=== PATIENT | female | born 1970 | race Caucasian/White ===

== ENCOUNTER 2017-03-23 14:28 | Emergency (ER) | payer OTHER ==
[~2017-03-23] VITALS: Ht 162.6 cm; Wt 59.0 kg
[2017-03-23] MEDS ORDERED: PROMETHAZINE 12.5 MG in IV NORMAL SALINE 50ML 50 ML IV PRN (15:00)
--- NOTE | 2017-03-23 15:00 | PHYS DOC ---
Past Medical History Past Medical History: No Pertinent History Past Surgical History: No Surgical History Alcohol Use: Rarely Drug Use: None Adult General Chief Complaint Chief Complaint: HEADACHE HPI HPI Patient is a 46 year old presents to the emergency department to 4 week history of a global headache. She states it's gotten progressively worse over last 3-4 days. She states that this is not like any headache she has experienced in the past and she's never had a chronic headache lasting more than 1-2 days.She does state that she has dizziness, on occasion, with standing. She denies blurred vision, double vision, loss of vision, nausea, vomiting, diarrhea. No chest pain, abdominal pain. No loss of function of lower upper extremity's. She reports she has been using [id number] ibuprofen and Tylenol with minimal relief symptoms. Review of Systems Review of Systems Constitutional: Denies fever or chills [] Eyes: Denies change in visual acuity, redness, or eye pain [] HENT: Denies nasal congestion or sore throat [] Respiratory: Denies cough or shortness of breath [] Cardiovascular: No additional information not addressed in HPI [] GI: Denies abdominal pain, nausea, vomiting, bloody stools or diarrhea [] Neurologic: Denies headache, focal weakness or sensory changes [] Current Medications Current Medications Current Medications Medications (Trade) Dose Ordered Sig/Jose G Start Time Stop Time Status Last Admin Dose Admin Diphenhydramine HCl (Benadryl) 25 mg 1X ONCE 03/23/17 15:30 03/23/17 15:31 DC 03/23/17 15:32 25 MG Ketorolac Tromethamine (Toradol) 30 mg 1X ONCE 03/23/17 15:30 03/23/17 15:31 DC 03/23/17 15:32 30 MG Promethazine HCl 12.5 mg/Sodium Chloride 50.5 ml @ 151.5 mls/ hr 1X ONCE 03/23/17 15:30 03/23/17 15:49 DC 03/23/17 15:32 151.5 MLS/HR Sodium Chloride 1,000 ml @ 1,000 mls/hr 1X ONCE 03/23/17 15:30 03/23/17 16:29 03/23/17 15:32 1,000 MLS/HR Allergies Allergies Allergies Coded Allergies Type Severity Reaction Last Updated Verified No Known Drug Allergies 03/23/17 No Physical Exam Physical Exam Constitutional: Well developed, well nourished, no acute distress, non-toxic appearance. [] HENT: Normocephalic, atraumatic, bilateral external ears normal, oropharynx moist, no oral exudates, nose normal. [] Eyes: PERRLA, EOMI, conjunctiva normal, no discharge. [] Neck: Normal range of motion, no tenderness, supple, no meningeal signs Cardiovascular:Heart rate regular rhythm, no murmur, no lower extremity edema [] Lungs & Thorax: Bilateral breath sounds clear to auscultation [] Abdomen: Bowel sounds normal, soft, no tenderness, no masses, no pulsatile masses. [] Skin: Warm, dry, no erythema, no rash. [] Extremities: No tenderness, no cyanosis, no clubbing, ROM intact, no edema. [] Neurologic: Alert and oriented X 3, normal motor function, normal sensory function, no focal deficits noted, cranial 2 through 12 are grossly intact, muscle strength is 5 over 5, DTRs 4 extremities [] Psychologic: Affect normal, judgement normal, mood normal. [] Current Patient Data Vital Signs Vital Signs Date Time Temp Pulse Resp B/P (MAP) Pulse Ox O2 Delivery O2 Flow Rate FiO2 03/23/17 15:37 64 16 108/66 (80) 99 03/23/17 14:40 98.6 Room Air 98.6 EKG EKG [] Radiology/Procedures Radiology/Procedures [][facility] [address] [place] [address] IMAGING REPORT Signed PATIENT: DAMIR CARR ACCOUNT: [id number] : 1970 LOCATION: ER AGE: 46 SEX: F EXAM STATUS: REG ER ORD. PHYSICIAN: AHMET SIMPSON APRN REASON: SIEGEL PROCEDURE: CT HEAD WO CONTRAST Indication headache for several weeks. Noncontrast images of the head were obtained. No prior imaging of the head is available. The calvarium appears unremarkable. The visualized paranasal sinuses appear normal. There is no subdural or epidural hematoma. There is no mass or midline shift. The ventricles and sulci are normal. There is no hemorrhage. No acute finding is seen. IMPRESSION: No acute or significant intracranial finding PQRS Compliance Statement: One or more of the following individualized dose reduction techniques were utilized for this examination: 1. Automated exposure control 2. Adjustment of the mA and/or kV according to patient size 3. Use of iterative reconstruction technique DICTATED and SIGNED BY: NAMITA WAITE MD DATE: 03/23/17 5405 CC: NON,STAFF; AHMET HART MD; AHMET SIMPSON APRN ~ Course & Med Decision Making Course & Med Decision Making Pertinent Labs and Imaging studies reviewed. (See chart for detaiils) Patient reports that her headache has resolved. I spoke with the patient and/ or care givers. I've explained the patient's condition, diagnosis and treatment plan based on the information available to me at this time. I've answered the patient's and/or care givers questions and a dressing concerns. The patient and/ or care givers have as good an understanding of the patient's diagnosis, condition and treatment plan as can be expected at this time. Vital signs stable. The patient's condition is stable and appropriate for discharge from the emergency department. The patient will pursue further outpatient evaluation with the primary care physician or other designated or consulting physician as outlined in the discharge instructions. The patient and/or care givers are agreeable to this plan of care and follow-up instructions and explained in detail. The patient and /or care givers have received these instructions in written format and have expressed an understanding of the discharge instructions. The patient and/or caregivers are aware that any significant change in condition or worsening of symptoms should prompt immediate return to this closest emergency department or call to 911. [] Dragon Disclaimer Dragon Disclaimer This electronic medical record was generated, in whole or in part, using a voice recognition dictation system. Departure Departure Impression: Primary Impression: Cephalgia Disposition: 01 HOME, SELF-CARE Condition: STABLE Referrals: AHMET HART MD (PCP) Patient Instructions: Tension Headache Scripts Cyclobenzaprine Hcl (CYCLOBENZAPRINE HCL) 10 Mg Tablet 1 TAB PO TID, #20 TAB Prov: AHMET SIMPSON APRN 03/23/17 Naproxen (NAPROSYN) 500 Mg Tablet 1 TAB PO BID, #20 TAB 1 Refill Prov: AHMET SIMPSON APRN 03/23/17 AHMET SIMPSON APRN Mar 23, 2017 15:00
[2017-03-23] MEDS ORDERED: diphenhydrAMINE 50 MG/ML VIAL IVP ONE (15:30)
[2017-03-23] MEDS ORDERED: IV NORMAL SALINE 1000ML BAG 1,000 ML IV ONE (15:30)
[2017-03-23] MEDS ORDERED: KETOROLAC TROMETHAMINE 30 MG/ML INJ. IV ONE (15:30)
[2017-03-23] MEDS ORDERED: PROMETHAZINE 12.5 MG in IV NORMAL SALINE 50ML 50 ML IV ONE (15:30)
--- NOTE | 2017-03-23 16:20 | RAD ---
Indication headache for several weeks. Noncontrast images of the head were obtained. No prior imaging of the head is available. The calvarium appears unremarkable. The visualized paranasal sinuses appear normal. There is no subdural or epidural hematoma. There is no mass or midline shift. The ventricles and sulci are normal. There is no hemorrhage. No acute finding is seen. IMPRESSION: No acute or significant intracranial finding PQRS Compliance Statement: One or more of the following individualized dose reduction techniques were utilized for this examination: 1. Automated exposure control 2. Adjustment of the mA and/or kV according to patient size 3. Use of iterative reconstruction technique
[2017-03-23] MEDS ORDERED: CYCL10TA2 PO (16:32)
[2017-03-23] MEDS ORDERED: NAPR500T PO (16:32)
[2017-03-23 16:40] VITALS: BP 105/77
== END 2017-03-23 16:51 | disposition home or self-care (01) ==
LOC: ER 14:28
DX: R51 Headache (principal); R42 Dizziness and giddiness
CPT/HCPCS: 70450; 96365; 96375; 99284; J1200; J1885; J2550; J7030; C1887

== ENCOUNTER → 2019-02-18 | Outpatient (CLI) | payer OTHER ==
[~2019-02-18] MED LIST: CYCL10TA2 PO; NAPR-683 PO
--- NOTE | 2019-02-18 16:57 | KCIC ---
EXAM: CHEST 2 VIEWS. HISTORY: Smoking history, decreased pulmonary function. COMPARISON: None. FINDINGS: Frontal and lateral views of the chest are obtained. The lungs are expanded to the 10th posterior interspaces. The hemidiaphragms are not flattened. There are no confluent infiltrates. There is no pneumothorax or pleural effusion. The heart is not enlarged. IMPRESSION: 1. No confluent infiltrates. Electronically signed by: Jessica Sanders MD (02/18/2019 4:54 PM) [facility]
== END | disposition home or self-care (01) ==
LOC: KCIC 15:05
PROVIDERS: ATTEND Family Medicine
DX: Z72.0 Tobacco use (principal)
CPT/HCPCS: 71046

== ENCOUNTER 2021-08-15 10:53 | Emergency (ER) | payer OTHER ==
[~2021-08-15] VITALS: Ht 162.6 cm; Wt 63.6 kg
[~2021-08-15 10:53] MED LIST changes: +CYCL10TA19 PO; -CYCL10TA2 PO
[2021-08-15] MEDS ORDERED: IV NORMAL SALINE 1000ML BAG 1,000 ML IV ONE (12:15)
[2021-08-15] MEDS ORDERED: diphenhydrAMINE 50 MG/ML VIAL IVP ONE (12:15)
[2021-08-15] MEDS ORDERED: PROCHLORPERAZINE 10 MG/2 ML VIAL. IV ONE (12:15)
--- NOTE | 2021-08-15 13:05 | RAD ---
CT HEAD/BRAIN WO Date: 08/15/2021 12:56 PM Clinical Indication: Severe headache with thunderclap onset / Spl. Instructions: / History: Comparison: None. Technique: 5 mm axial tomographic images were obtained of the head without contrast. These were view ed on brain and bone windows. One or more of the following dose reduction techniques were utilized: A utomated exposure control (AEC), Adjustment of mA and/or kV according to patient size, Use of iterati ve reconstruction technique such as ASiR, CT scan done according to ALARA and image gently/image johnson ly Findings: The brain parenchyma is normal in attenuation. No intra- or extra-axial mass or fluid collection. No acute hemorrhage. The ventricles are normal in size, shape, and morphology. The hernandez-white matter jessica ction is normal. The subarachnoid cisterns are patent. Opacification of the left frontal sinus. The visualized portions of the orbits and globes are normal . The mastoid air cells are clear. The shell molder topogram shows no lytic lesion or fracture. Impression: 1. No acute intracranial process. 2. Left frontal sinus opacification. Electronically signed by: Darvin Soares MD (08/15/2021 1:03 PM) [facility]
--- NOTE | 2021-08-15 14:06 | PHYS DOC ---
Past Medical History Past Medical History: No Pertinent History (TORI GARCIA APRN) Past Surgical History: No Surgical History (TORI GARCIA APRN) Smoking Status: Never Smoker Alcohol Use: Rarely Drug Use: None (TORI GARCIA APRN) General Adult EDM: Chief Complaint: HEADACHE HPI: HPI: Patient is a 51-year-old female who presents to the emergency department complaining of a thunderclap onset of a migraine headache that started at 830 this morning while she was at work working on her computer. Patient does report a history of migraine headaches, reports getting 3-4 migraines per week that is usually relieved with her prescription medications for her migraines. She denies any other health history. Patient reports this is the worst migraine she has ever experienced. Patient reports the light does make her headache worse, reports her headache is a 10 out of 10 at this time on the left side of her head starting in the front and radiating to the back of the left side of her head. Patient denies nausea, vomiting, diarrhea, denies visual disturbances or auras. Denies dizziness, syncopal or near syncopal episodes. Denies numbness or t ingling to her extremities. Patient denies recent fever or chills. Denies changes in medications. Patient reports she is postmenopausal. Denies other physical complaints or physical concerns. (TORI GARCIA APRN) Review of Systems: Review of Systems: 14 body systems of review of systems have been reviewed. See HPI for pertinent positives and negative responses, otherwise all other systems are negative, nonpertinent or noncontributory. Constitutional: Negative except as outlined in HPI above. Skin: Negative except as outlined in HPI above. Eyes: Negative except as outlined in HPI above. HENT: Negative except as outlined in HPI above. Respiratory: Negative except as outlined in HPI above. Cardiovascular: Negative except as outlined in HPI above. GI: Negative except as outlined in HPI above. : Negative except as outlined in HPI above. Musculoskeletal: Negative except as outlined in HPI above. Integument: Negative except as outlined in HPI above. Neurologic: Negative except as outlined in HPI above. Endocrine: Negative except as outlined in HPI above. Lymphatic: Negative except as outlined in HPI above. Psychiatric: Negative except as outlined in HPI above. (TORI GARCIA APRN) Heart Score: C/O Chest Pain: No Risk Factors: Risk Factors: DM, Current or recent (<one month) smoker, HTN, HLP, family history of CAD, obesity. Risk Scores: Score 0 - 3: 2.5% MACE over next 6 weeks - Discharge Home Score 4 - 6: 20.3% MACE over next 6 weeks - Admit for Clinical Observation Score 7 - 10: 72.7% MACE over next 6 weeks - Early Invasive Strategies (TORI GARCIA APRN) Current Medications: Current Medications Medications (Trade) Dose Ordered Sig/Jose G Start Time Stop Time Status Last Admin Dose Admin Diphenhydramine HCl (Benadryl) 25 mg 1X ONCE 08/15/21 12:15 08/15/21 12:17 DC 08/15/21 12:33 25 MG Prochlorperazine Edisylate (Compazine) 10 mg 1X ONCE 08/15/21 12:15 08/15/21 12:17 DC 08/15/21 12:33 10 MG Sodium Chloride 1,000 ml @ 1,000 mls/hr 1X ONCE 08/15/21 12:15 08/15/21 13:14 DC 08/15/21 12:32 1,000 MLS/HR (TORI GARCIA APRN) Allergies: Allergies: Allergies Coded Allergies Type Severity Reaction Last Updated Verified No Known Drug Allergies 03/23/17 No (TORI GARCIA APRN) Physical Exam: PE: Constitutional: Well developed, well nourished, no acute distress, non-toxic appearance. 51-year-old female in no apparent distress. HENT: Normocephalic, atraumatic. Bilateral TMs intact within normal limits, oropharynx moist, pink, no deep tissue infectious process appreciated, bilateral nasal turbinates moist, patent, no drainage appreciated. No drooling, no malocclusion, no trismus, patient speaking in normal voice tones. Eyes: Conjunctiva normal, no discharge. PERRLA. Neck: Normal range of motion, no stridor. No nuchal rigidity, no meningismus signs. Cardiovascular: No cyanosis appreciated, distal cap refill less than 2 seconds. Lungs & Thorax: Patient is in no respiratory distress, no audible adventitious lung sounds appreciated. Abdomen: Nontender, no abnormalities noted. Skin: Warm, dry, no erythema, no rash. Back: No tenderness, no deformities. Extremities: No tenderness, no cyanosis, no clubbing, ROM intact, no edema. Neurologic: Alert and oriented X 3, normal motor function, normal sensory function, no focal deficits noted. Psychologic: Affect normal, judgement normal, mood normal. (TORI GARCIA APRN) Current Patient Data: Vital Signs: Vital Signs Date Time Temp Pulse Resp B/P (MAP) Pulse Ox O2 Delivery O2 Flow Rate FiO2 08/15/21 11:50 97.2 79 18 131/79 (96) 97 Room Air 97.2 (TORI GARCIA APRN) EKG: EKG: [] (TORI GARCIA APRN) Radiology/Procedures: Radiology/Procedures: REASON: Severe headache with thunderclap onset PROCEDURE: CT HEAD WO CONTRAST CT HEAD/BRAIN WO Date: 08/15/2021 12:56 PM Clinical Indication: Severe headache with thunderclap onset / Spl. Instructions: / History: Comparison: None. Technique: 5 mm axial tomographic images were obtained of the head without contrast. These were viewed on brain and bone windows. One or more of the following dose reduction techniques were utilized: Automated exposure control (AEC), Adjustment of mA and/or kV according to patient size, Use of iterative reconstruction technique such as ASiR, CT scan done according to ALARA and image gently/image wisely Findings: The brain parenchyma is normal in attenuation. No intra- or extra-axial mass or fluid collection. No acute hemorrhage. The ventricles are normal in size, shape, and morphology. The hernandez-white matter junction is normal. The subarachnoid cisterns are patent. Opacification of the left frontal sinus. The visualized portions of the orbits and globes are normal. The mastoid air cells are clear. The iron assorter topogram shows no lytic lesion or fracture. Impression: 1. No acute intracranial process. 2. Left frontal sinus opacification. Electronically signed by: Darvin Soares MD (08/15/2021 1:03 PM) [facility] (TORI GARCIA APRN) Course & Med Decision Making: Course & Med Decision Making Pertinent Labs and Imaging studies reviewed. (See chart for details) 51-year-old female, vital signs reviewed, presents to the emergency department concerning migraine headache exacerbation reporting thunderclap onset stating this is the worst migraine she has ever had. Physical examination unremarkable, patient does report photophobia, explanation of events consistent with migraine onset, will order CT head without contrast, 1 L normal saline, 25 mg Benadryl IV, 10 mg IV Compazine, will consider Toradol pending CT head result. CT head unremarkable for acute process, upon reevaluation of the patient, patient reports she is feeling much better, reporting her pain is down to a 2 out of 10 and is more tolerable and wishes to go home at this time. Discussed with patient will give 30 mg IV Toradol prior to discharge, strict follow-up with primary care at the [facility], continue to take migraine medications as prescribed by her physician. Patient gave verbal understanding of and is amenable to ED discharge planning. Diagnosis migraine headache not intractable. Discussed with the patient all findings and diagnostic testing as well as the need to follow-up with their primary care provider for further evaluation and treatment or return to the ED if any new or worsening symptoms. Strict return precautions were also discussed at length, the patient voiced understanding and agreement with the discharge planning. The patient was nontoxic in appearance, in no apparent distress, and hemodynamically stable at the time of disposition. (TORI GARCIA APRN) Course & Med Decision Making Agree with above. CT head <6 hours from onset of thunderclap headache effectively rules out SAH. (SIMRAN SILVEIRA MD) Dragon Disclaimer: Dragon Disclaimer: This electronic medical record was generated, in whole or in part, using a voice recognition dictation system. (TORI GARCIA APRN) Departure Departure Impression: Primary Impression: Migraine Qualified Codes: G43.009 - Migraine without aura, not intractable, without status migrainosus Disposition: HOME / SELF CARE / HOMELESS Condition: GOOD Referrals: UNKNOWN PCP NAME (PCP) Patient Instructions: Migraine Headache Additional Instructions: You were seen today in the emergency department for a migraine headache exacerbation unrelieved by your migraine medication at home. You reported this was the worst headache you have ever experienced, therefore a CT of your head was performed, there were no concerning findings of a brain bleed or aneurysm. You were given a headache cocktail intravenously while in the emergency departme nt, you reported good pain relief with these medications. Please continue to take your migraine medications as directed by your primary care physicians. Follow-up with your doctor at the [facility] soon for ongoing evaluation of your migraine headaches. Return to the emergency department for worsening symptoms or other concerns. Thank you for visiting our Emergency De partment. It was a pleasure taking care of you today in the emergency department and we appreciate you trusting us with your care. If any additional problems come up don't hesitate to return to visit us. Please follow up with your primary care provider so they can plan additional care if needed and know about the problem that you had. If symptoms worsen come back to the Emergency Department. Any concerning symptoms that start such as chest pain, shortness of air, weakness or numbness on one side of the body, running high fevers or any other concerning symptoms return to the ER. EMERGENCY DEPARTMENT GENERAL DISCHARGE INSTRUCTIONS Thank you for coming to [facility] Emergency Department (ED) today and trusting us with you care. We trust that you had a positive experience in our Emergency Department. If you wish to speak to the department management, you may call the Director at [phone]. YOUR FOLLOW UP INSTRUCTIONS ARE FOLLOWS: 1. Do you have a private Doctor? If you do not have a private doctor, please ask for a resource list of physicians or clinics that may be able to assist you with follow up care. 2. The Emergency Physicain has interpreted your x-rays. The X-Ray specialist will also review them. If there is a change in the findings, you will be notified in 48 hours when at all possible. 3. A lab test or culture has been done, your results will be reviewed and you will be notified if you need a change in treatment. ADDITIONAL INSTRUCTIONS AND INFORMATION: 1. Your care today has been supervised by a physician who is specially trained in emergency care. Many problems require more than one evaluation for a complete diagnosis and treatment. We recommend that you schedule your follow up appointment as recommended to ensure complete treatment of you illness or injury. If you are unable to obtain follow up care and continue to have a problem, or if your condition worsens, we recommend that you return to the ED. 2. We are not able to safely determine your condition over the phone nor are we able to give sound medical advice over the phone. For these safety reasons, if you call for medical advice we will ask you to come to the ED for further evaluation. 3. If you have any questions regarding these discharge instructions please call the ED at [phone]. SAFETY INFORMATION: In the interest of safety, wellness, and injury prevention; we encourage you to wear your sealbelt, if you smoke; quite smoking, and we encourage family to use a protective helmet for bicycling and other sporting events that present an increased risk for head injury. IF YOUR SYMPTOMS WORSEN OR NEW SYMPTOMS DEVELOP, OR YOU HAVE CONCERNS ABOUT YOUR CONDITION; OR IF YOUR CONDITION WORSENS WHILE YOU ARE WAITING FOR YOUR FOLLOW UP APPOI NTMENT; EITHER CONTACT YOUR PRIMARY CARE DOCTOR, THE PHYSICIAN WHOSE NAME AND NUMBER YOU WERE GIVEN, OR RETURN TO THE ED IMMEDIATELY. TORI GARCIA APRN Aug 15, 2021 14:06 SIMRAN SILVEIRA MD Aug 15, 2021 18:23
[2021-08-15 14:10] VITALS: BP 109/56
[2021-08-15] MEDS ORDERED: KETOROLAC 30 MG/ML VIAL. IVP ONE (14:15)
== END 2021-08-15 14:25 | disposition home or self-care (01) ==
LOC: ER 10:53
DX: G43.009 Migraine without aura, not intractable, without status migrainosus (principal)
CPT/HCPCS: 70450; 96361; 96374; 96375; 99284; J0780; J1200; J1885; J7030